=== PATIENT | female | born 1960 | race Caucasian/White ===

== ENCOUNTER 2018-01-19 12:29 | Emergency (ER) | payer MEDICAID, OTHER ==
[~2018-01-19] VITALS: Ht 144.8 cm; Wt 86.2 kg
--- NOTE | 2018-01-19 12:49 | NUR ---
PT AMBULATED TO BED 10
[2018-01-19 12:51] VITALS: BP 110/48
[2018-01-19] MEDS ORDERED: diphenhydrAMINE 50 MG/ML VIAL IM ONE (13:00)
[2018-01-19] MEDS ORDERED: PROCHLORPERAZINE 10 MG/2 ML VIAL IM ONE (13:00)
--- NOTE | 2018-01-19 13:12 | NUR ---
PATIENT PRESENTS TO ED WITH left occipital headache pressure type with light sensitivity . PT STATES . DENIES N/V/D; SKIN IS PINK/WARM/DRY; AAOX4 WITH EVEN AND STEADY GAIT; LUNGS CLEAR BL; HR EVEN AND REGULAR; PT DENIES ANY FEVER, CP, SOB, OR COUGH AT THIS TIME; PATIENT STATES PAIN OF 8/10 AT THIS TIME; VSS; PATIENT POSITIONED FOR COMFORT; HOB ELEVATED; BEDRAILS UP X2; BED DOWN. ER MD MADE AWARE OF PT STATUS.
[2018-01-19 14:26] VITALS: BP 92/54
--- NOTE | 2018-01-19 14:26 | NUR ---
Patient discharged with v/s stable. Written and verbal after care instructions given and explained. Patient alert, oriented and verbalized understanding of instructions. Ambulatory with steady gait. All questions addressed prior to discharge. ID band removed. Patient advised to follow up with PMD. Rx of benadryl/compazine given. Patient educated on indication of medication including possible reaction and side effects. Opportunity to ask questions provided and answered.
== END 2018-01-19 14:26 | disposition home or self-care (01) ==
LOC: MED 12:29
DX: G44.209 Tension-type headache, unspecified, not intractable (principal)
CPT/HCPCS: 96372; 99284; J0780; J1200

== ENCOUNTER 2019-08-13 10:35 | Emergency (ER) | payer SELFPAY ==
[~2019-08-13] VITALS: Ht 160 cm; Wt 83.9 kg
[2019-08-13 10:38] VITALS: BP 138/74
--- NOTE | 2019-08-13 10:38 | NUR ---
Patient ambulated to bed 3 with family. RN evaluating patient at bedside.
--- NOTE | 2019-08-13 10:50 | NUR ---
PATIENT PRESENTS TO ED WITH HEADACHE X 1 WEEK. NO MED HX. STATES PAIN OF 7/10 AT THIS TIME; VSS; PATIENT POSITIONED FOR COMFORT; HOB ELEVATED; BEDRAILS UP X2; BED DOWN. ER MD MADE AWARE OF PT STATUS.
[2019-08-13] MEDS ORDERED: LIDOCAINE MPF 1% 10 MG/ML VIAL INJ ONE (11:15)
--- NOTE | 2019-08-13 12:28 | NUR ---
Dr. Lopez is evaluating the patient at bedside.
[2019-08-13 12:41] VITALS: BP 134/68
== END 2019-08-13 12:40 | disposition home or self-care (01) ==
LOC: MED 10:35
DX: M54.81 Occipital neuralgia (principal); G47.30 Sleep apnea, unspecified; Z98.890 Other specified postprocedural states
CPT/HCPCS: 20552; 99284; J2001; 99283